=== PATIENT | male | born 1960 | race Hispanic/Latino ===

== ENCOUNTER → 2018-01-31 | Outpatient (CLI) | payer OTHER, MEDICARE ==
[~2018-01-31] MED LIST: LACT10SO PO; LUBI24CA2 PO; MULT1TAB7 PO
== END | disposition home or self-care (01) ==
LOC: RAH 10:30
PROVIDERS: ATTEND Internal Medicine
DX: T17.320A Food in larynx causing asphyxiation, initial encounter (principal); R13.10 Dysphagia, unspecified; X58.XXXA Exposure to other specified factors, initial encounter; Y93.89 Activity, other specified; Y92.89 Other specified places as the place of occurrence of the external cause; Y99.8 Other external cause status
CPT/HCPCS: 74230; 92611

== ENCOUNTER → 2018-08-12 | Outpatient (CLI) | payer OTHER, MEDICARE ==
[~2018-08-12] MED LIST changes: +BACL10TA PO; +DOXY100T2 PO; +LACT PO; -LACT10SO PO; -LUBI24CA2 PO; +PANT40TA PO
--- NOTE | 2018-08-12 11:24 | NUR ---
MBSS COMPLETED. NO PENETRATION OR ASPIRATION DURING MBSS. RECOMMEND PUREED, NECTAR-THICK LIQUIDS; PILLS CRUSHED. PATIENT INFORMATION: Pt IS A 57 YEAR OLD MALE WAS REFERRED FOR A REPEAT MBSS SECONDARY TO CAREGIVER REPORTING THAT HE WAS COUGHING AT MEAL TIMES AND CHOKING OVER THE WEEKEND. Pt WITH ATAXIC LIKE MOVEMENTS WHEN AMBULATING. Pt WITH TANGENTIAL SPEECH AT THIS TIME WITH 20% INTELLIGIBILITY. CURRENTLY, Pt LIVES AT A [facility]. Pt WITH A PAST MEDICAL HISTORY SIGNIFICANT FOR MODERATE IDD, CONSTIPATION, INTESTINAL OBSTRUCTION, EXPLOSIVE/COMPULSIVE CONTROL DISORDER. DURING THE MBSS Pt WAS IMPULSIVE WITH P.O. PER CAREGIVER, Pt EATS ON HIS OWN AT THE [facility] WITH SUPERVISION. 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 PRESENTATION, EVIDENCED BY SPILLOVER TONGUE INTO THE VALLECULAE, POOLING IN THE VALLECULAE AND PYRIFORM SINUS, DECREASED MASTICATION OF SOLID (SWALLOWING FRUIT IN LARGE PIECE). NO PENETRATION OR ASPIRATION PRESENT AT THE TIME OF THE MBSS. Pt IS AT HIGH RISK FOR ASPIRATION WITH THIN LIQUIDS AND IS CURRENTLY TOLERATING NECTAR. RECOMMENDATIONS: 1. PUREED, NECTAR-THICK LIQUIDS; PILLS CRUSHED. 2. COMPENSATORY STRATEGIES: *SEATED AT 90 DEGREES *SMALL VOLUME SIZE *NO STRAW *USE OF MAROON SPOON AT MEAL TIMES *ASSIST WITH FEEDING. [facility] ARCHITECT PROVIDED MEDICAL INSURANCE CLAIMS PROCESSOR WITH HANDOUT DESCRIBING RESULTS AND RECOMMENDATIONS. ALL QUESTIONS WERE ANSWERED AT THIS TIME. CAREGIVER STATED THAT IN THE [facility], THERE WERE OTHER RESIDENTS WITH THICKENER AND THEY ARE FAMILIAR WITH THICKENING AND USE OF MAROON SPOON. ALL QUESTIONS ANSWERED AT THIS TIME. G-CODES SWALLOWING: [id number] Addendum: 08/12/18 at 1131 by NICOLASA BRYAN Amended: Links added.
== END | disposition home or self-care (01) ==
LOC: RAH 08:58
PROVIDERS: ATTEND Internal Medicine
DX: R13.10 Dysphagia, unspecified (principal)
CPT/HCPCS: 74230; 92611

== ENCOUNTER 2018-10-10 15:44 | Emergency (ER) | payer OTHER, MEDICARE | END 2018-10-10 19:45 | disposition home or self-care (01) | LOC: EDH 15:44 | DX: M79.602 Pain in left arm (principal); Z88.6 Allergy status to analgesic agent; Z88.8 Allergy status to other drugs, medicaments and biological substances | CPT/HCPCS: 70450; 73060; 73090 ==

== ENCOUNTER → 2018-12-31 | Outpatient (CLI) | payer OTHER ==
[~2018-12-31] MED LIST changes: -DOXY100T2 PO; +FERR325T22 PO; +IOHEXOL 350 MG/ML 100ML INFUS..BTL IV ONE; -LACT PO; +LACT10SO PO; +OMEP40CA37 PO; -PANT40TA PO; +[UNRECOGNIZED DRUG - CODE] PO
== END | disposition home or self-care (01) ==
LOC: RAH 09:51
PROVIDERS: ATTEND Internal Medicine
DX: K56.699 Other intestinal obstruction unspecified as to partial versus complete obstruction (principal); K44.9 Diaphragmatic hernia without obstruction or gangrene; M47.815 Spondylosis without myelopathy or radiculopathy, thoracolumbar region
CPT/HCPCS: 74177; Q9967

== ENCOUNTER 2019-01-01 17:06 | Inpatient (IN) | payer OTHER, MEDICARE | END 2019-01-10 19:15 | LOC: EDH 17:06 → 2DH 01-05 22:56 → 4CH 01-02 20:00 → EDHIP 20:27 | DX: K92.2 Gastrointestinal hemorrhage, unspecified (principal); E43 Unspecified severe protein-calorie malnutrition; K56.609 Unspecified intestinal obstruction, unspecified as to partial versus complete obstruction; K55.9 Vascular disorder of intestine, unspecified; Z68.1 Body mass index [BMI] 19.9 or less, adult; R60.1 Generalized edema; R15.9 Full incontinence of feces ==